=== PATIENT | male | born 1945 | race Caucasian/White ===

== ENCOUNTER 2018-07-13 16:29 | Inpatient (IN) ==
[2018-07-13] MEDS ORDERED: SODIUM CHLORIDE 0.9% 500 ML IV STA (17:16)
[2018-07-13] MEDS ORDERED: PANTOPRAZOLE 40 MG VIAL IV STA (17:16)
[2018-07-13 17:29] LABS: Basophils # 0.1 10*3/uL (0.0-0.2); Basophils % 0.8 % (0.0-0.8); Eosinophils # 0.3 10*3/uL (0.0-0.87); Hematocrit 26.9 VOL% (42.0-52.0); Hemoglobin 7.9 GM/DL (14.0-18.0); Immature Granulocytes % 0.3 %; Immature Granulocytes Absolute 0.02 #; Lymphocytes # 0.8 10*3/uL (1.4-4.0); Lymphocytes % 12.2 % (21.2-54.2); Mean Corpuscular HGB Conc 29.4 GM/DL (32-36); Mean Corpuscular Hemoglobin 24 PG (27-34); Mean Corpuscular Volume 81.5 FL (87-102); Mean Platelet Volume 10.7 FL (9.6-12.0); Monocytes # 0.8 10*3/uL (0.11-0.8); Monocytes % 13.2 % (1.7-12.7); Neutrophils # 4.3 10*3/uL (1.4-7.4); Neutrophils % 69.5 % (38.7-73.9); Platelet Count 189 T/CUMM (130-400); Red Cell Distribution Width 14.6 % (9.3-17.3); White Blood Count 6.2 T/CUMM (4-12)
[2018-07-13 17:38] LABS: PT Patient Result 10.9 SECS
[2018-07-13 18:05] LABS: Alanine Aminotransferase 16 U/L (16-61); Albumin 3.5 G/DL (3.4-5.0); Alkaline Phosphatase 107 U/L (45-117); Aspartate Amino Transferase 7 U/L (0-37); Bilirubin,Total < 0.39 MG/DL (0.2-1.0); Blood Urea Nitrogen 16 MG/DL (7-18); Calcium 8.5 MG/DL (8.5-10.1); Glucose 95 MG/DL (74-106); Osmolality,Calculated 275.7 MOS/KG (273-304); Potassium 3.8 MMOL/L (3.5-5.1); Sodium 138 MMOL/L (136-145); Total Protein 6.4 G/DL (6.4-8.3)
[2018-07-13] MEDS ORDERED: ONDANSETRON 4 MG/2 ML VIAL IV PRN (19:20)
[2018-07-13] MEDS ORDERED: ACETAMINOPHEN 325 MG TABLET PO PRN (19:20)
[2018-07-13] MEDS: SODIUM CHLORIDE 0.9% 1,000 ML IV SCH (20:09)
[2018-07-13 20:19] LABS: Basophils % 0.6 % (0.0-0.8); Eosinophils # 0.3 10*3/uL (0.0-0.87); Eosinophils % 4.2 % (0.00-10.9); Hematocrit 25.7 VOL% (42.0-52.0); Hemoglobin 7.4 GM/DL (14.0-18.0); Immature Granulocytes % 0.3 %; Immature Granulocytes Absolute 0.02 #; Lymphocytes # 0.9 10*3/uL (1.4-4.0); Lymphocytes % 14.5 % (21.2-54.2); Mean Corpuscular HGB Conc 28.8 GM/DL (32-36); Mean Corpuscular Hemoglobin 24 PG (27-34); Mean Corpuscular Volume 81.8 FL (87-102); Mean Platelet Volume 10.5 FL (9.6-12.0); Monocytes # 0.8 10*3/uL (0.11-0.8); Monocytes % 12.6 % (1.7-12.7); Neutrophils # 4.2 10*3/uL (1.4-7.4); Neutrophils % 67.8 % (38.7-73.9); Platelet Count 186 T/CUMM (130-400); Red Blood Count 3.14 MC/CUMM (3.8-5.5); Red Cell Distribution Width 14.7 % (9.3-17.3); White Blood Count 6.2 T/CUMM (4-12)
[2018-07-13] MEDS ORDERED: TAMSULOSIN 0.4 MG CAPSULE PO SCH (21:00)
[2018-07-13] MEDS ORDERED: ATORVASTATIN 80 MG TABLET PO SCH (21:00)
[2018-07-13] MEDS ORDERED: VENLAFAXINE XR 75 MG CAPSULE PO SCH (21:00)
[2018-07-13] MEDS ORDERED: traZODone 50 MG TABLET PO SCH (21:00)
[2018-07-13 21:08] LABS: Anisocytosis 1+; Hypochromasia 1+; Microcytosis 1+; Ovalocytes Few; Platelet Estimate Normal
[2018-07-14] MEDS: PANTOPRAZOLE 40 MG TABLET PO SCH ×3 (00:05→21:30)
[2018-07-14 03:18] LABS: Basophils % 0.7 % (0.0-0.8); Eosinophils # 0.3 10*3/uL (0.0-0.87); Eosinophils % 5.9 % (0.00-10.9); Hematocrit 24.7 VOL% (42.0-52.0); Immature Granulocytes % 0.2 %; Immature Granulocytes Absolute 0.01 #; Lymphocytes # 0.8 10*3/uL (1.4-4.0); Lymphocytes % 18.9 % (21.2-54.2); Mean Corpuscular HGB Conc 28.3 GM/DL (32-36); Mean Corpuscular Hemoglobin 23 PG (27-34); Mean Corpuscular Volume 82.1 FL (87-102); Monocytes # 0.8 10*3/uL (0.11-0.8); Monocytes % 18.5 % (1.7-12.7); Neutrophils # 2.5 10*3/uL (1.4-7.4); Neutrophils % 55.8 % (38.7-73.9); Platelet Count 165 T/CUMM (130-400); Red Blood Count 3.01 MC/CUMM (3.8-5.5); Red Cell Distribution Width 14.6 % (9.3-17.3); White Blood Count 4.4 T/CUMM (4-12)
[2018-07-14 03:54] LABS: Band Neutrophils 3 % (0-10); Eosinophils 3 % (0-10); Lymphocytes 16 % (20-55); Segmented Neutrophils 69 % (50-85); Total Cells Counted 100
[2018-07-14 03:55] LABS: Anisocytosis 1+; Hypochromasia 1+; Ovalocytes Few; Platelet Estimate Adequate
[2018-07-14 05:11] LABS: Basophils # 0.1 10*3/uL (0.0-0.2); Basophils % 1.2 % (0.0-0.8); Eosinophils # 0.3 10*3/uL (0.0-0.87); Hemoglobin 7.5 GM/DL (14.0-18.0); Immature Granulocytes % 0.2 %; Immature Granulocytes Absolute 0.01 #; Lymphocytes # 0.9 10*3/uL (1.4-4.0); Lymphocytes % 19.8 % (21.2-54.2); Mean Corpuscular HGB Conc 28.1 GM/DL (32-36); Mean Corpuscular Hemoglobin 23 PG (27-34); Mean Corpuscular Volume 82.4 FL (87-102); Mean Platelet Volume 11.2 FL (9.6-12.0); Monocytes # 0.6 10*3/uL (0.11-0.8); Monocytes % 14.7 % (1.7-12.7); Neutrophils # 2.5 10*3/uL (1.4-7.4); Neutrophils % 58.1 % (38.7-73.9); Platelet Count 176 T/CUMM (130-400); Red Blood Count 3.24 MC/CUMM (3.8-5.5); Red Cell Distribution Width 14.7 % (9.3-17.3); White Blood Count 4.3 T/CUMM (4-12)
[2018-07-14 05:19] LABS: PT Patient Result 10.8 SECS
[2018-07-14 05:24] LABS: Hematocrit 26.1 VOL% (42.0-52.0)
[2018-07-14 05:31] LABS: Blood Urea Nitrogen 14 MG/DL (7-18); Calcium 8.2 MG/DL (8.5-10.1); Glucose 82 MG/DL (74-106); Sodium 143 MMOL/L (136-145); Troponin I < 0.015 NG/ML (0.00-0.045)
[2018-07-14 05:50] LABS: Atypical Lymphocytes Few; Eosinophils 5 % (0-10); Hypochromasia 1+; Lymphocytes 21 % (20-55); Segmented Neutrophils 68 % (50-85); Total Cells Counted 100
[2018-07-14 05:51] LABS: Microcytosis 1+; Platelet Estimate Adequate
[2018-07-14] MEDS: NITROGLYCERIN SL 0.4 MG TABLET SL PRN (06:02)
[2018-07-14] MEDS ORDERED: LEVOTHYROXINE 25 MCG TABLET PO SCH (06:30)
[2018-07-14 07:36] LABS: Basophils % 0.8 % (0.0-0.8); Eosinophils # 0.3 10*3/uL (0.0-0.87); Eosinophils % 5.4 % (0.00-10.9); Hematocrit 25.5 VOL% (42.0-52.0); Hemoglobin 7.3 GM/DL (14.0-18.0); Immature Granulocytes % 0.4 %; Immature Granulocytes Absolute 0.02 #; Lymphocytes # 0.8 10*3/uL (1.4-4.0); Lymphocytes % 14.3 % (21.2-54.2); Mean Corpuscular HGB Conc 28.6 GM/DL (32-36); Mean Corpuscular Hemoglobin 24 PG (27-34); Mean Platelet Volume 10.6 FL (9.6-12.0); Monocytes # 0.8 10*3/uL (0.11-0.8); Monocytes % 15.2 % (1.7-12.7); Neutrophils # 3.4 10*3/uL (1.4-7.4); Neutrophils % 63.9 % (38.7-73.9); Platelet Count 166 T/CUMM (130-400); Red Blood Count 3.11 MC/CUMM (3.8-5.5); Red Cell Distribution Width 14.6 % (9.3-17.3); White Blood Count 5.3 T/CUMM (4-12)
[2018-07-14 08:03] LABS: Hypochromasia 1+; Ovalocytes Slight; Platelet Estimate Adequate
[2018-07-14 08:04] LABS: Microcytosis Slight
[2018-07-14] MEDS ORDERED: CARVEDILOL 6.25 MG TABLET PO SCH (09:00)
[2018-07-14] MEDS ORDERED: AMIODARONE 200 MG TABLET PO SCH (09:00)
[2018-07-14] MEDS ORDERED: ISOSORBIDE MONONITRATE 60 MG TABLET PO SCH (09:00)
[2018-07-14] MEDS ORDERED: GABAPENTIN 300 MG CAPSULE PO SCH (09:00)
[2018-07-14] MEDS ORDERED: ASPIRIN EC 81 MG TABLET PO SCH (09:00)
[2018-07-14] MEDS: SODIUM CHLORIDE 0.9% 1,000 ML IV SCH ×2 (10:24→23:31)
[2018-07-14] MEDS: CARVEDILOL 3.125 MG TABLET PO SCH (10:29)
[2018-07-14] MEDS: ASPIRIN EC 81 MG TABLET PO SCH (10:29)
[2018-07-14] MEDS: GABAPENTIN 300 MG CAPSULE PO SCH (10:29)
[2018-07-14] MEDS: ISOSORBIDE MONONITRATE 60 MG TABLET PO SCH (10:29)
[2018-07-14] MEDS: AMIODARONE 200 MG TABLET PO SCH (10:29)
[2018-07-14] MEDS: LEVOTHYROXINE 25 MCG TABLET PO SCH (10:30)
[2018-07-14] MEDS ORDERED: OMEPRAZOLE PO SCH (11:00)
[2018-07-14 11:49] LABS: % Iron Saturation 4.5 % (18-50); Ferritin 5.8 ng/ml (26-388)
[2018-07-14] MEDS: TRAZODONE PO PRN (21:29)
[2018-07-14] MEDS: VENLAFAXINE PO SCH (21:29)
[2018-07-14] MEDS: TAMSULOSIN 0.4 MG CAPSULE PO SCH (21:30)
[2018-07-14] MEDS: ATORVASTATIN 80 MG TABLET PO SCH (21:30)
[2018-07-15 05:16] LABS: Hematocrit 26.7 VOL% (42.0-52.0); Hemoglobin 7.8 GM/DL (14.0-18.0)
[2018-07-15] MEDS: LEVOTHYROXINE 25 MCG TABLET PO SCH (07:10)
[2018-07-15] MEDS ORDERED: PROPOFOL 200 MG/20 ML VIAL IV ONE (09:00)
[2018-07-15] MEDS ORDERED: ETOMIDATE 20 MG/10 ML VIAL IV ONE (09:00)
[2018-07-15] MEDS ORDERED: LIDOCAINE 2% TOP JELLY 5 ML TUBE TOP ONE (09:00)
[2018-07-15] MEDS: ASPIRIN EC 81 MG TABLET PO SCH (10:21)
[2018-07-15] MEDS: CARVEDILOL 3.125 MG TABLET PO SCH (10:21)
[2018-07-15] MEDS: AMIODARONE 200 MG TABLET PO SCH (10:21)
[2018-07-15] MEDS: ISOSORBIDE MONONITRATE 60 MG TABLET PO SCH (10:21)
[2018-07-15] MEDS: PANTOPRAZOLE 40 MG TABLET PO SCH ×2 (10:22→21:58)
[2018-07-15] MEDS: GABAPENTIN 300 MG CAPSULE PO SCH (10:22)
[2018-07-15] MEDS ORDERED: IRON DEXTRAN 25 MG in SYRINGE 1 EACH IV ONE (14:00)
[2018-07-15] MEDS: SODIUM CHLORIDE 0.9% 1,000 ML IV SCH (14:00)
[2018-07-15] MEDS ORDERED: HYDROmorphone 2 MG/1 ML VIAL IV ONE (15:00)
[2018-07-15] MEDS ORDERED: SODIUM CHLORIDE 0.9% IV ONE (21:00)
[2018-07-15] MEDS ORDERED: IRON DEXTRAN IV ONE (21:00)
[2018-07-15] MEDS: TRAZODONE PO PRN (21:58)
[2018-07-15] MEDS: TAMSULOSIN 0.4 MG CAPSULE PO SCH (21:58)
[2018-07-15] MEDS: VENLAFAXINE PO SCH (21:58)
[2018-07-15] MEDS: ATORVASTATIN 80 MG TABLET PO SCH (21:59)
[2018-07-16] MEDS: NITROGLYCERIN SL 0.4 MG TABLET SL PRN (00:05)
[2018-07-16 05:18] LABS: Basophils # 0.1 10*3/uL (0.0-0.2); Basophils % 0.8 % (0.0-0.8); Eosinophils # 0.3 10*3/uL (0.0-0.87); Eosinophils % 4.2 % (0.00-10.9); Hematocrit 26.8 VOL% (42.0-52.0); Hemoglobin 7.8 GM/DL (14.0-18.0); Immature Granulocytes % 0.5 %; Immature Granulocytes Absolute 0.03 #; Lymphocytes % 16.8 % (21.2-54.2); Mean Corpuscular HGB Conc 29.1 GM/DL (32-36); Mean Corpuscular Hemoglobin 24 PG (27-34); Mean Corpuscular Volume 82.2 FL (87-102); Mean Platelet Volume 10.7 FL (9.6-12.0); Monocytes # 0.8 10*3/uL (0.11-0.8); Monocytes % 13.2 % (1.7-12.7); Neutrophils # 3.8 10*3/uL (1.4-7.4); Neutrophils % 64.5 % (38.7-73.9); Platelet Count 162 T/CUMM (130-400); Red Blood Count 3.26 MC/CUMM (3.8-5.5); Red Cell Distribution Width 14.6 % (9.3-17.3); White Blood Count 5.9 T/CUMM (4-12)
[2018-07-16 05:37] LABS: Calcium 8.5 MG/DL (8.5-10.1); Osmolality,Calculated 278.3 MOS/KG (273-304); Potassium 3.7 MMOL/L (3.5-5.1)
[2018-07-16] MEDS: AMIODARONE 200 MG TABLET PO SCH (08:14)
[2018-07-16] MEDS: LEVOTHYROXINE 25 MCG TABLET PO SCH (08:14)
[2018-07-16] MEDS: ASPIRIN EC 81 MG TABLET PO SCH (08:14)
[2018-07-16] MEDS: GABAPENTIN 300 MG CAPSULE PO SCH (08:15)
[2018-07-16] MEDS: CARVEDILOL 3.125 MG TABLET PO SCH (08:15)
[2018-07-16] MEDS: ISOSORBIDE MONONITRATE 60 MG TABLET PO SCH (08:15)
[2018-07-16 08:17] VITALS: BP 163/65
[2018-07-16] MEDS: PANTOPRAZOLE 40 MG TABLET PO SCH (08:17)
[2018-07-16] MEDS: SODIUM CHLORIDE 0.9% 1,000 ML IV SCH (09:16)
== END 2018-07-16 10:07 | disposition home or self-care (01) | DRG 379 ==
LOC: N.2E 16:29 → N.ED 16:29 → SUATTDRO 18:40 → N.2E 19:30
PROVIDERS: ADMIT Internal Medicine; ATTEND Internal Medicine Geriatric Medicine

== ENCOUNTER 2018-09-01 16:29 | Inpatient (IN) ==
[2018-09-01] MEDS ORDERED: NITROGLYCERIN 2% OINT 1 INCH/GM PACK TOP STA (16:56)
[2018-09-01] MEDS ORDERED: ONDANSETRON 4 MG/2 ML VIAL IV STA (16:56)
[2018-09-01] MEDS ORDERED: ASPIRIN 325 MG TABLET PO STA (16:56)
[2018-09-01] MEDS ORDERED: MORPHINE 4 MG/1 ML VIAL IV STA (16:56)
[2018-09-01 17:15] LABS: Basophils # 0.1 10*3/uL (0.0-0.2); Basophils % 0.7 % (0.0-0.8); Eosinophils # 0.2 10*3/uL (0.0-0.87); Eosinophils % 3.5 % (0.00-10.9); Hematocrit 35.1 VOL% (42.0-52.0); Hemoglobin 10.8 GM/DL (14.0-18.0); Immature Granulocytes % 0.1 %; Immature Granulocytes Absolute 0.01 #; Lymphocytes # 1.2 10*3/uL (1.4-4.0); Lymphocytes % 18.2 % (21.2-54.2); Mean Corpuscular HGB Conc 30.8 GM/DL (32-36); Mean Corpuscular Hemoglobin 27 PG (27-34); Mean Corpuscular Volume 87.8 FL (87-102); Mean Platelet Volume 11.6 FL (9.6-12.0); Monocytes # 0.8 10*3/uL (0.11-0.8); Monocytes % 12.3 % (1.7-12.7); Neutrophils # 4.5 10*3/uL (1.4-7.4); Neutrophils % 65.2 % (38.7-73.9); Platelet Count 164 T/CUMM (130-400); Red Cell Distribution Width 19.4 % (9.3-17.3); White Blood Count 6.8 T/CUMM (4-12)
[2018-09-01 17:24] LABS: PT Patient Result 11.2 SECS
[2018-09-01] MEDS ORDERED: BISACODYL 5 MG TABLET PO PRN (17:54)
[2018-09-01] MEDS ORDERED: MAGNESIUM SULF RIDER 2 GM in PREMIX 1 EACH IV PRN (17:54)
[2018-09-01] MEDS ORDERED: MAGNESIUM SULF RIDER 4 GM in PREMIX 1 EACH IV PRN (17:54)
[2018-09-01] MEDS ORDERED: DOCUSATE SODIUM 100 MG CAPSULE PO PRN (17:54)
[2018-09-01] MEDS ORDERED: guaiFENesin/DM ER 600-30 MG TABLET PO PRN (17:54)
[2018-09-01] MEDS ORDERED: ONDANSETRON 4 MG/2 ML VIAL IV PRN (17:54)
[2018-09-01] MEDS ORDERED: diphenhydrAMINE CAP 25 MG CAPSULE PO PRN (17:54)
[2018-09-01] MEDS ORDERED: POTASSIUM CHLORIDE 20 MEQ TABLET PO PRN (17:54)
[2018-09-01] MEDS ORDERED: ZALEPLON 5 MG CAPSULE PO PRN (17:54)
[2018-09-01] MEDS ORDERED: PROMETHAZINE 25 MG/1 ML VIAL IM PRN (17:54)
[2018-09-01] MEDS ORDERED: NITROGLYCERIN SL 0.4 MG TABLET SL PRN (17:56)
[2018-09-01] MEDS ORDERED: [UNRECOGNIZED DRUG - OTHER] PO PRN (17:56)
[2018-09-01] MEDS ORDERED: ACETAMINOPHEN WITH CODEINE PO PRN (17:56)
[2018-09-01] MEDS ORDERED: CYCLOBENZAPRINE 10 MG TABLET PO PRN (17:58)
[2018-09-01 18:11] LABS: Alanine Aminotransferase 16 U/L (16-61); Albumin 3.6 G/DL (3.4-5.0); Alkaline Phosphatase 87 U/L (45-117); Aspartate Amino Transferase 14 U/L (0-37); Bilirubin,Total < 0.39 MG/DL (0.2-1.0); Blood Urea Nitrogen 18 MG/DL (7-18); Calcium 8.4 MG/DL (8.5-10.1); Glucose 94 MG/DL (74-106); Sodium 143 MMOL/L (136-145)
[2018-09-01] MEDS ORDERED: ENOXAPARIN 80 MG/0.8 ML SYRINGE SUBCUT ONE (18:25)
[2018-09-01] MEDS: traZODone 50 MG TABLET PO SCH (21:22)
[2018-09-01] MEDS: VENLAFAXINE XR 75 MG CAPSULE PO SCH (21:22)
[2018-09-01] MEDS: ATORVASTATIN 80 MG TABLET PO SCH (21:22)
[2018-09-01] MEDS: CARVEDILOL 12.5 MG TABLET PO SCH (21:22)
[2018-09-01] MEDS: TAMSULOSIN 0.4 MG CAPSULE PO SCH (21:22)
[2018-09-01] MEDS: ASCORBIC ACID 500 MG TABLET PO SCH (21:23)
[2018-09-01] MEDS: PANTOPRAZOLE 40 MG TABLET PO SCH (21:23)
[2018-09-01] MEDS: GABAPENTIN 300 MG CAPSULE PO SCH (21:23)
[2018-09-02 04:45] LABS: Basophils % 0.8 % (0.0-0.8); Eosinophils # 0.2 10*3/uL (0.0-0.87); Eosinophils % 5.1 % (0.00-10.9); Hematocrit 36.5 VOL% (42.0-52.0); Immature Granulocytes % 0.2 %; Immature Granulocytes Absolute 0.01 #; Lymphocytes # 1.2 10*3/uL (1.4-4.0); Lymphocytes % 24.6 % (21.2-54.2); Mean Corpuscular HGB Conc 30.1 GM/DL (32-36); Mean Corpuscular Hemoglobin 27 PG (27-34); Mean Corpuscular Volume 88.4 FL (87-102); Monocytes # 0.6 10*3/uL (0.11-0.8); Monocytes % 13.4 % (1.7-12.7); Neutrophils # 2.6 10*3/uL (1.4-7.4); Neutrophils % 55.9 % (38.7-73.9); Platelet Count 140 T/CUMM (130-400); Red Blood Count 4.13 MC/CUMM (3.8-5.5); Red Cell Distribution Width 19.4 % (9.3-17.3); White Blood Count 4.7 T/CUMM (4-12)
[2018-09-02 05:10] LABS: Blood Urea Nitrogen 18 MG/DL (7-18); Calcium 8.4 MG/DL (8.5-10.1); Cholesterol 114 MG/DL (50-200); Glucose 90 MG/DL (74-106); HDL Cholesterol 40 MG/DL (40-60); Osmolality,Calculated 287.8 MOS/KG (273-304); Potassium 3.9 MMOL/L (3.5-5.1); Risk Ratio 2.85; Sodium 144 MMOL/L (136-145); Triglycerides 72 MG/DL (2-150); Troponin I < 0.015 NG/ML (0.00-0.045); VLDL CHOLESTEROL 14.4 MG/DL
[2018-09-02] MEDS: NITROGLYCERIN 2% OINT 1 INCH/GM PACK TOP SCH ×4 (06:25→18:14)
[2018-09-02] MEDS: MORPHINE 4 MG/1 ML VIAL IV PRN ×2 (06:57→22:04)
[2018-09-02] MEDS ORDERED: ENOXAPARIN 80 MG/0.8 ML SYRINGE SUBCUT ONE (07:00)
[2018-09-02] MEDS: LEVOTHYROXINE 25 MCG TABLET PO SCH ×2 (07:20→07:27)
[2018-09-02] MEDS: ASPIRIN EC 81 MG TABLET PO SCH (08:21)
[2018-09-02] MEDS: FERROUS SULFATE 325 MG TABLET PO SCH (08:21)
[2018-09-02] MEDS: ASCORBIC ACID 500 MG TABLET PO SCH ×2 (08:21→21:26)
[2018-09-02] MEDS: GABAPENTIN 300 MG CAPSULE PO SCH ×3 (08:21→22:08)
[2018-09-02] MEDS: RANOLAZINE 500 MG TABLET PO SCH ×2 (08:26→21:25)
[2018-09-02] MEDS: PANTOPRAZOLE 40 MG TABLET PO SCH ×2 (08:26→21:26)
[2018-09-02] MEDS: CARVEDILOL 12.5 MG TABLET PO SCH ×3 (08:42→21:25)
[2018-09-02] MEDS ORDERED: PANTOPRAZOLE 40 MG TABLET PO SCH (09:00)
[2018-09-02] MEDS ORDERED: ISOSORBIDE MONONITRATE 60 MG TABLET PO SCH (09:00)
[2018-09-02 09:35] LABS: Apearance,Urine CLEAR (Clear); Bilirubin,Urine Negative (Negative); Blood, Urine Negative (Negative); Glucose,Urine (UA) Negative (Negative); Ketones,Urine Negative (Negative); Mucus,Urine Few /LPF (Occasional); Nitrite,Urine Negative (Negative); Protein,Urine Negative; RBC,Urine 1 /HPF (0-4); Urine Color Yellow (Yellow); Urine Specific Gravity 1.019 (1.001-1.035); Urine Urobilinogen < 2.0 EU/DL (0.2-1.0); WBC,Urine 1 /HPF (0-6)
[2018-09-02] MEDS: VENLAFAXINE XR 75 MG CAPSULE PO SCH (21:25)
[2018-09-02] MEDS: ATORVASTATIN 80 MG TABLET PO SCH (21:26)
[2018-09-02] MEDS: traZODone 50 MG TABLET PO SCH (21:26)
[2018-09-02] MEDS: TAMSULOSIN 0.4 MG CAPSULE PO SCH (21:26)
[2018-09-03] MEDS: NITROGLYCERIN 2% OINT 1 INCH/GM PACK TOP SCH ×2 (00:20→05:38)
[2018-09-03] MEDS: LEVOTHYROXINE 25 MCG TABLET PO SCH (05:38)
[2018-09-03 07:48] VITALS: BP 124/60
[2018-09-03] MEDS: RANOLAZINE 500 MG TABLET PO SCH (08:11)
[2018-09-03] MEDS: FERROUS SULFATE 325 MG TABLET PO SCH (08:11)
[2018-09-03] MEDS: GABAPENTIN 300 MG CAPSULE PO SCH (08:11)
[2018-09-03] MEDS: CARVEDILOL 12.5 MG TABLET PO SCH (08:11)
[2018-09-03] MEDS: PANTOPRAZOLE 40 MG TABLET PO SCH (08:11)
[2018-09-03] MEDS: ASCORBIC ACID 500 MG TABLET PO SCH (08:11)
[2018-09-03] MEDS: ASPIRIN EC 81 MG TABLET PO SCH (08:13)
== END 2018-09-03 11:30 | disposition home or self-care (01) | DRG 303 ==
LOC: N.EDINP 16:29 → N.ED 16:29 → N.CC 09-02 06:07 → N.TELEN 09-02 14:53
PROVIDERS: ADMIT Internal Medicine Cardiovascular Disease; ATTEND Internal Medicine Cardiovascular Disease